=== PATIENT | male | born 1970 | race Caucasian/White ===

== ENCOUNTER 2020-10-14 18:46 | Emergency (ER) | payer OTHER ==
[~2020-10-14] VITALS: Ht 175.3 cm; Wt 95.7 kg
[2020-10-14 18:59] VITALS: BP 143/85
--- NOTE | 2020-10-14 19:08 | NUR ---
PT AMBULATED TO LOBBY WITH EVEN AND STEADY GAIT.
[2020-10-14] MEDS ORDERED: FLUORESCEIN OPTH STRIP 1 MG ONE (20:42)
[2020-10-14] MEDS ORDERED: TETRACAINE HCL/PF 0.5% OPTH 4 ML BTL ONE (20:44)
--- NOTE | 2020-10-14 21:45 | NUR ---
ASH PERFORMING PROCEDURE IN TRIAGE ROOM.
--- NOTE | 2020-10-14 22:05 | NUR ---
Patient discharged with v/s stable. Written and verbal after care instructions given and explained. Patient verbalized understanding. Ambulatory with steady gait. All questions addressed prior to discharge. Advised to follow up with PMD.
[2020-10-14] MEDS ORDERED: FLUORESCEIN OPTH STRIP 1 MG OP ONE (22:10)
[2020-10-14] MEDS ORDERED: TETRACAINE HCL/PF 0.5% OPTH 4 ML BTL OP ONE (22:10)
== END 2020-10-14 22:05 | disposition home or self-care (01) ==
LOC: MED 18:46
DX: T15.02XA Foreign body in cornea, left eye, initial encounter (principal); K21.9 Gastro-esophageal reflux disease without esophagitis; I10 Essential (primary) hypertension; X58.XXXA Exposure to other specified factors, initial encounter; Y93.89 Activity, other specified; Y92.89 Other specified places as the place of occurrence of the external cause; Y99.8 Other external cause status
CPT/HCPCS: 65205; 99283; 99284

== ENCOUNTER 2023-12-18 18:07 | Emergency (ER) | payer OTHER ==
[~2023-12-18] VITALS: Ht 175.3 cm; Wt 111.6 kg
[2023-12-18 18:42] VITALS: BP 143/75; PULSE 66; RESP 15; TEMP 98.6; O2SAT 97
[2023-12-18] MEDS ORDERED: NAPR-1560 PO (19:55)
== END 2023-12-18 19:58 | disposition home or self-care (01) ==
LOC: MED 18:07
DX: S62.300A Unspecified fracture of second metacarpal bone, right hand, initial encounter for closed fracture (principal); I10 Essential (primary) hypertension; Z79.899 Other long term (current) drug therapy; Y04.2XXA Assault by strike against or bumped into by another person, initial encounter; Y93.89 Activity, other specified; Y92.89 Other specified places as the place of occurrence of the external cause; Y99.8 Other external cause status
CPT/HCPCS: 73130; 99283